=== PATIENT | female | born 1970 | race Hispanic/Latino ===

== ENCOUNTER 2016-06-06 12:47 | Emergency (ER) | payer MEDICARE, MEDICAID ==
[~2016-06-06] VITALS: Ht 147.3 cm; Wt 64.9 kg
[2016-06-06] MEDS ORDERED: ESTR625TA (13:05)
--- NOTE | 2016-06-06 14:41 | REP ---
CT Head without contrast HISTORY: Headache COMPARISON: 12/03/2010 There is no intraparenchymal hemorrhage, acute infarct, mass or midline shift. The ventricular system is normal in appearance. There is no extra cerebral collection. There is no fracture. The visualized sinuses are clear. IMPRESSION: There is no intracranial lesion. Signed by Andres Sanchez MD 06/06/2016 02:32 P
[2016-06-06] MEDS ORDERED: ACETAMINOPHEN 325 MG TAB PO ONE (15:15)
[2016-06-06] MEDS ORDERED: KETOROLAC 60 MG/2 ML VIAL (J1885) IM ONE (15:15)
[2016-06-06 16:21] VITALS: BP 150/93
== END 2016-06-06 16:36 | disposition home or self-care (01) ==
LOC: M ED 13:34
DX: R51 Headache (principal); Z79.818 Long term (current) use of other agents affecting estrogen receptors and estrogen levels
CPT/HCPCS: 70450; 96372; 99282; J1885

== ENCOUNTER 2016-08-20 19:40 | Emergency (ER) | payer MEDICARE, MEDICAID ==
[~2016-08-20] VITALS: Ht 147.3 cm; Wt 65.4 kg
[~2016-08-20 19:40] MED LIST: ESTR625TA
[2016-08-20] MEDS ORDERED: MECLIZINE 25 MG TABLET PO ONE (20:15)
[2016-08-20] MEDS ORDERED: NS 1,000 ML IV SCH (20:15)
[2016-08-20 21:14] LABS: BASO # 0.1 K/mm3 (0.0-0.2); BASO % 0.8 % (0.0-1.0); EOS # 0.2 K/mm3 (0.0-0.50); EOS % 2.2 % (0.0-3.0); LARGE UNSTAINED CELL # 0.3 K/mm3 (0.0-0.4); LARGE UNSTAINED CELL % 2.9 % (0.0-4.0); LYMPH # 2.8 K/mm3 (1.5-4.5); LYMPH % 31.4 % (24.0-44.0); MEAN CORPUSCULAR HEMOGLOBIN 28.1 pg (27.0-33.0); MEAN CORPUSCULAR HGB CONC 34.9 g/dl (32.0-36.5); MEAN CORPUSCULAR VOLUME 80.6 fl (80.0-96.0); MONO # 0.4 K/mm3 (0.0-0.8); MONO % 4.5 % (0.0-5.0); NEUTROPHILS # 5.3 K/mm3 (1.8-7.7); NEUTROPHILS % 58.3 % (36.0-66.0); PLATELET COUNT, AUTOMATED 267 k/mm3 (150-450); RED CELL DISTRIBUTION WIDTH 13.7 % (11.5-14.5)
[2016-08-20 21:20] LABS: INR 0.94
[2016-08-20 21:21] LABS: CONTROL LINE HCG INT CTR LINE PRESENT
[2016-08-20 21:28] LABS: ALBUMIN 3.8 GM/DL (3.2-5.2); ALKALINE PHOSPHATASE 128 U/L (45-117); ALT/SGPT 59 U/L (12-78); ANION GAP 6 MEQ/L (8-16); AST/SGOT 51 U/L (15-37); BILIRUBIN,DIRECT 0.1 MG/DL (0.0-0.2); BILIRUBIN,TOTAL 0.4 MG/DL (0.2-1.0); BLOOD UREA NITROGEN 11 MG/DL (7-18); CALCIUM LEVEL 8.3 MG/DL (8.5-10.1); CARBON DIOXIDE LEVEL 29 MEQ/L (21-32); CHLORIDE LEVEL 107 MEQ/L (98-107); GLOMERULAR FILTRATION RATE > 60.0 (>58); GLUCOSE, FASTING 91 MG/DL (70-105); SODIUM LEVEL 142 MEQ/L (136-145); TOTAL PROTEIN 7.6 GM/DL (6.4-8.2)
--- NOTE | 2016-08-20 22:05 | REP ---
Clinical: Headache and dizziness . Comparison: 06/06/2016 . Findings: The ventricles, sulci, and cisterns are normal in position and appearance. Benton-white differentiation is maintained. No acute intracranial hemorrhage, mass/mass effect, pathology or trauma/injury. No evidence for acute infarction. No extra-axial fluid collection. Calvarium is intact. Paranasal sinuses and mastoid air cells are clear. Impression: Normal noncontrast head CT. No evidence for acute intracranial pathology or trauma/injury. Signed by Allen Palacios MD 08/20/2016 09:57 P
[2016-08-20] MEDS ORDERED: MECL-68 PO (22:28)
[2016-08-20 22:32] VITALS: BP 134/95
--- NOTE | 2016-08-22 07:20 | ECGEPIP ---
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
== END 2016-08-20 22:55 | disposition home or self-care (01) ==
LOC: M ED 19:40
DX: H83.09 Labyrinthitis, unspecified ear (principal); R11.2 Nausea with vomiting, unspecified

== ENCOUNTER 2018-02-09 14:37 | Emergency (ER) | payer MEDICARE, MEDICAID ==
[~2018-02-09 14:37] MED LIST changes: +BENT10CA PO; +MECL-68 PO; +MOBI4TAB PO; +ZANA4TAB PO
[2018-02-09] MEDS ORDERED: LISI-542 (14:45)
[2018-02-09 15:38] LABS: HEMATOCRIT 43.8 % (36.0-47.0); HEMOGLOBIN 14.2 g/dl (12.0-15.5); MEAN CORPUSCULAR HEMOGLOBIN 27.4 pg (27.0-33.0); MEAN CORPUSCULAR HGB CONC 32.4 g/dl (32.0-36.5); MEAN CORPUSCULAR VOLUME 84.6 fl (80.0-96.0); PLATELET COUNT, AUTOMATED 279 10^3/uL (150-450); RED BLOOD COUNT 5.18 10^6/uL (4.00-5.40); WHITE BLOOD COUNT 7.8 10^3/uL (4.0-10.0)
[2018-02-09 15:54] LABS: AMPHETAMINES LEVEL URINE NEGATIVE (NEGATIVE); BARBITURATES URINE NEGATIVE (NEGATIVE); BENZODIAZEPINES URINE NEGATIVE (NEGATIVE); CANNABINOIDS URINE NEGATIVE (NEGATIVE); COCAINE METABOLITE URINE NEGATIVE (NEGATIVE); METHADONE URINE NEGATIVE (NEGATIVE); OPIATES URINE NEGATIVE (NEGATIVE); PHENCYCLIDINE URINE NEGATIVE (NEGATIVE)
[2018-02-09] MEDS ORDERED: LISINOPRIL 5 MG TAB PO ONE (16:00)
[2018-02-09] MEDS ORDERED: ACETAMINOPHEN TAB 650MG DOSE (2X325MG) PO ONE (16:00)
[2018-02-09 16:23] VITALS: BP 154/100
[2018-02-09 16:28] LABS: ALT/SGPT 15 U/L (12-78); BILIRUBIN,TOTAL 0.5 MG/DL (0.2-1.0); BLOOD UREA NITROGEN 21 MG/DL (7-18); CALCIUM LEVEL 8.9 MG/DL (8.5-10.1); CARBON DIOXIDE LEVEL 29 MEQ/L (21-32); CHLORIDE LEVEL 109 MEQ/L (98-107); CREATININE FOR GFR 0.69 MG/DL (0.55-1.30); GLOMERULAR FILTRATION RATE > 60.0 (>58); GLUCOSE, FASTING 105 MG/DL (70-100); POTASSIUM SERUM 3.8 MEQ/L (3.5-5.1); SODIUM LEVEL 143 MEQ/L (136-145)
[2018-02-09 16:29] LABS: ACETAMINOPHEN LEVEL < 2.0 UG/ML (10.0-30.0); ALBUMIN 4.3 GM/DL (3.2-5.2); BILIRUBIN,DIRECT 0.1 MG/DL (0.0-0.2); ETHYL ALCOHOL (ETHANOL) < 0.003 % (0.000-0.010); SALICYLATE LEVEL < 1.7 MG/DL (5.0-30.0); TOTAL PROTEIN 7.8 GM/DL (6.4-8.2)
[2018-02-09 17:19] VITALS: BP 152/96
== END 2018-02-09 18:10 | disposition home or self-care (01) ==
LOC: M ED 14:37
DX: F32.9 Major depressive disorder, single episode, unspecified (principal); I10 Essential (primary) hypertension; Z79.899 Other long term (current) drug therapy
CPT/HCPCS: 80048; 80076; 80307; 84443; 85027; 99284; G0480

== ENCOUNTER → 2018-08-05 | Outpatient (CLI) | payer MEDICARE, MEDICAID ==
[~2018-08-05] MED LIST changes: +LISI-542
--- NOTE | 2018-08-05 14:46 | REP ---
CHEST: Two views. COMPARISON: 10/10/2015 There is no evidence of acute infiltrate. No pleural effusion is seen. The heart is normal in size. The mediastinal silhouette is unremarkable. The visualized osseous structures are intact. There are degenerative changes of the spine. IMPRESSION: No acute pulmonary disease. Electronically Signed by Rudi Benton MD 08/05/2018 04:51 P
== END ==
LOC: M WUC 13:15
PROVIDERS: ATTEND Physician Assistant
DX: R05 Cough (principal)

== ENCOUNTER 2018-12-03 14:23 | Emergency (ER) | payer MEDICARE, MEDICAID ==
[~2018-12-03] VITALS: Ht 147.3 cm; Wt 61.8 kg
[~2018-12-03 14:23] MED LIST changes: -LISI-542; +LISI-542 PO
[2018-12-03] MEDS ORDERED: LOSA50TA5 PO (14:30)
[2018-12-03 15:53] LABS: BASO % 0.2 % (0.0-1.0); EOS # 0.1 10^3/uL (0.0-0.5); EOS % 0.6 % (0.0-3.0); HEMATOCRIT 40.9 % (36.0-47.0); HEMOGLOBIN 13.8 g/dl (12.0-15.5); LYMPH # 1.1 10^3/uL (1.5-5.0); LYMPH % 8.9 % (24.0-44.0); MEAN CORPUSCULAR HEMOGLOBIN 28.4 pg (27.0-33.0); MEAN CORPUSCULAR HGB CONC 33.7 g/dl (32.0-36.5); MEAN CORPUSCULAR VOLUME 84.2 fl (80.0-96.0); MONO # 0.4 10^3/uL (0.0-0.8); MONO % 3.2 % (0.0-5.0); NEUTROPHILS # 10.4 10^3/uL (1.5-8.5); NEUTROPHILS % 86.9 % (36.0-66.0); PLATELET COUNT, AUTOMATED 292 10^3/uL (150-450); RED BLOOD COUNT 4.86 10^6/uL (4.00-5.40)
[2018-12-03 16:22] LABS: HCG, SERUM QUALITATIVE NEGATIVE (NEGATIVE)
[2018-12-03 16:23] LABS: ALT/SGPT 14 U/L (12-78); BILIRUBIN,DIRECT 0.1 MG/DL (0.0-0.2); BILIRUBIN,TOTAL 0.5 MG/DL (0.2-1.0); BLOOD UREA NITROGEN 16 MG/DL (7-18); CALCIUM LEVEL 9.5 MG/DL (8.5-10.1); CARBON DIOXIDE LEVEL 28 MEQ/L (21-32); CHLORIDE LEVEL 103 MEQ/L (98-107); CREATININE FOR GFR 0.64 MG/DL (0.55-1.30); GLOMERULAR FILTRATION RATE > 60.0 (>58); GLUCOSE, FASTING 104 MG/DL (70-100); LIPASE 139 U/L (73-393); POTASSIUM SERUM 3.3 MEQ/L (3.5-5.1); SODIUM LEVEL 138 MEQ/L (136-145); TOTAL PROTEIN 7.4 GM/DL (6.4-8.2)
[2018-12-03] MEDS ORDERED: NS 1,000 ML IV ONE (16:45)
[2018-12-03] MEDS ORDERED: ONDANSETRON 4MG/2ML VIAL (J2405) IV ONE (16:45)
[2018-12-03] MEDS ORDERED: KETOROLAC 30 MG/ML VIAL (J1885) IV ONE (16:45)
[2018-12-03] MEDS ORDERED: ISOVUE-370 76% 100ML VIAL (Q9967) As Ordered ONE (16:48)
--- NOTE | 2018-12-03 17:36 | REPVR ---
PROCEDURE INFORMATION: Exam: CT Abdomen And Pelvis With Contrast Exam date and time: 12/03/2018 4:47 PM Clinical history: 48 years old, female; Abdominal pain; Generalized; Additional info: Ruq/luq abd pain TECHNIQUE: Imaging protocol: Computed tomography of the abdomen and pelvis with intravenous contrast. Axial, coronal and sagittal reformatted images were created and reviewed. Radiation optimization: All CT scans at this facility use at least one of these dose optimization techniques: automated exposure control; mA and/or kV adjustment per patient size (includes targeted exams where dose is matched to clinical indication); or iterative reconstruction. Contrast material: ISOVUE 370; Contrast volume: 100 ml; Contrast route: IV; COMPARISON: CT ABD PELVIS W/O CONTRAST 06/24/2017 3:16 PM FINDINGS: Mediastinum: Small hiatal hernia. Liver: Mild hepatic steatosis. Gallbladder and bile ducts: Contracted gallbladder without radiodense gallstones. Common bile duct dilatation to approximately 1 cm. Pancreas: Unremarkable. Spleen: Unremarkable. Adrenals: Unremarkable. Kidneys and ureters: No mass. No radiodense calculi. No hydronephrosis. Stomach and bowel: No bowel wall thickening. No obstruction. No pneumatosis. Appendix: Normal. Intraperitoneal space: No free fluid. No organized fluid collection. No free air. Vasculature: Unremarkable. No aneurysm. Lymph nodes: Small mesenteric lymph nodes, nonspecific in appearance. No pathologically enlarged lymph nodes. Bladder: Mild circumferential urinary bladder wall thickening, likely secondary to underdistention. Reproductive: Status post hysterectomy. Bones/joints: No acute osseous abnormality. Osteopenia. Mild degenerative changes. Soft tissues: Unremarkable. IMPRESSION: 1. Common bile duct dilatation to approximately 1 cm. correlate with LFTs. 2. Mild circumferential urinary bladder wall thickening, likely secondary to underdistention. Correlate with urinalysis to exclude cystitis. 3. Additional findings, as above. Electronically signed by: Rohit Barrera On 12/03/2018 17:36:01 PM
[2018-12-03 19:46] VITALS: BP 170/73
--- NOTE | 2018-12-04 16:04 | ED PDOC ---
Post-Departure Follow-Up jody greer and [facility] faxed formal report of ct abd/p for fu Tonja Cast MD Dec 04, 2018 16:04
== END 2018-12-03 20:03 | disposition home or self-care (01) ==
LOC: M ED 14:23
DX: R10.11 Right upper quadrant pain (principal); K59.00 Constipation, unspecified; D13.1 Benign neoplasm of stomach; Z79.890 Hormone replacement therapy; Z79.899 Other long term (current) drug therapy
CPT/HCPCS: 74177; 80048; 80076; 81001; 83690; 84703; 85025; 96361; 96374; 96375; 99284; J1885; J2405; Q9967

== ENCOUNTER 2019-06-13 10:46 | Emergency (ER) | payer MEDICARE, MEDICAID ==
[~2019-06-13] VITALS: Ht 147.3 cm; Wt 61.8 kg
[~2019-06-13 10:46] MED LIST changes: +LOSA50TA5 PO; -MECL-68 PO; +MECL1TAB31 PO
[2019-06-13 11:23] LABS: HEMOGLOBIN 13.8 g/dl (12.0-15.5); MEAN CORPUSCULAR HEMOGLOBIN 28.3 pg (27.0-33.0); MEAN CORPUSCULAR HGB CONC 33.7 g/dl (32.0-36.5); PLATELET COUNT, AUTOMATED 256 10^3/uL (150-450); RED BLOOD COUNT 4.88 10^6/uL (4.00-5.40); WHITE BLOOD COUNT 6.1 10^3/uL (4.0-10.0)
[2019-06-13 12:02] LABS: HCG, SERUM QUALITATIVE NEGATIVE (NEGATIVE)
[2019-06-13 12:08] LABS: ACETAMINOPHEN LEVEL < 2.0 UG/ML (10.0-30.0); ALT/SGPT 15 U/L (12-78); BILIRUBIN,DIRECT 0.1 MG/DL (0.0-0.2); BILIRUBIN,TOTAL 0.5 MG/DL (0.2-1.0); BLOOD UREA NITROGEN 18 MG/DL (7-18); CARBON DIOXIDE LEVEL 26 MEQ/L (21-32); CHLORIDE LEVEL 106 MEQ/L (98-107); CREATININE FOR GFR 0.56 MG/DL (0.55-1.30); ETHYL ALCOHOL (ETHANOL) < 0.003 % (0.000-0.010); GLOMERULAR FILTRATION RATE > 60.0 (>58); GLUCOSE, FASTING 92 MG/DL (70-100); POTASSIUM SERUM 3.6 MEQ/L (3.5-5.1); SALICYLATE LEVEL < 1.7 MG/DL (5.0-30.0); SODIUM LEVEL 139 MEQ/L (136-145); TOTAL PROTEIN 7.7 GM/DL (6.4-8.2)
[2019-06-13 12:13] LABS: AMPHETAMINES LEVEL URINE NEGATIVE (NEGATIVE); BARBITURATES URINE NEGATIVE (NEGATIVE); BENZODIAZEPINES URINE NEGATIVE (NEGATIVE); CANNABINOIDS URINE NEGATIVE (NEGATIVE); COCAINE METABOLITE URINE NEGATIVE (NEGATIVE); METHADONE URINE NEGATIVE (NEGATIVE); OPIATES URINE NEGATIVE (NEGATIVE); PHENCYCLIDINE URINE NEGATIVE (NEGATIVE)
[2019-06-13 13:59] VITALS: BP 150/55
== END 2019-06-13 14:01 | disposition home or self-care (01) ==
LOC: M ED 10:46
DX: F43.20 Adjustment disorder, unspecified (principal); F79 Unspecified intellectual disabilities; F32.9 Major depressive disorder, single episode, unspecified; I10 Essential (primary) hypertension; Z79.899 Other long term (current) drug therapy; Z79.890 Hormone replacement therapy
CPT/HCPCS: 36415; 80048; 80076; 80307; 84443; 84703; 85027; 99284; G0480

== ENCOUNTER → 2019-07-24 | Outpatient (CLI) | payer MEDICARE, MEDICAID ==
--- NOTE | 2019-07-24 13:36 | REP ---
REASON: Atraumatic pain. There are no priors for comparison. AP and frog lateral views were obtained. FINDINGS: No acute fracture or destructive osseous lesion. Electronically Signed by Ryan Harden DO 07/24/2019 02:33 P
== END ==
LOC: M WUC 11:15
PROVIDERS: ATTEND Physician Assistant
DX: M79.604 Pain in right leg (principal)

== ENCOUNTER 2020-07-16 01:08 | Emergency (ER) | payer MEDICARE, MEDICAID ==
[~2020-07-16] VITALS: Ht 147.3 cm; Wt 61.4 kg
[~2020-07-16 01:08] MED LIST changes: -LISI-542 PO; +LISI-898 PO
[2020-07-16 01:53] LABS: BASO % 0.3 % (0.0-1.0); EOS # 0.5 10^3/uL (0.0-0.5); EOS % 5.6 % (0.0-3.0); HEMATOCRIT 40.8 % (36.0-47.0); HEMOGLOBIN 13.3 g/dl (12.0-15.5); LYMPH # 2.7 10^3/uL (1.5-5.0); LYMPH % 30.2 % (24.0-44.0); MEAN CORPUSCULAR HEMOGLOBIN 27.5 pg (27.0-33.0); MEAN CORPUSCULAR HGB CONC 32.6 g/dl (32.0-36.5); MEAN CORPUSCULAR VOLUME 84.5 fl (80.0-96.0); MONO # 0.4 10^3/uL (0.0-0.8); MONO % 4.5 % (2.0-8.0); NEUTROPHILS # 5.2 10^3/uL (1.5-8.5); NEUTROPHILS % 59.1 % (36.0-66.0); PLATELET COUNT, AUTOMATED 283 10^3/uL (150-450); RED BLOOD COUNT 4.83 10^6/uL (4.00-5.40); WHITE BLOOD COUNT 8.9 10^3/uL (4.0-10.0)
[2020-07-16 02:38] LABS: BLOOD UREA NITROGEN 18 MG/DL (7-18); CALCIUM LEVEL 9.1 MG/DL (8.5-10.1); CARBON DIOXIDE LEVEL 26 MEQ/L (21-32); CHLORIDE LEVEL 108 MEQ/L (98-107); CK-MB VALUE MASS < 1.0 NG/ML (<3.6); CPK CREATINE PHOSPHOKINASE 74 U/L (26-192); GLOMERULAR FILTRATION RATE > 60.0 (>58); GLUCOSE, FASTING 94 MG/DL (70-100); MB/CK RELATIVE INDEX 1.35 (< OR =4); POTASSIUM SERUM 3.6 MEQ/L (3.5-5.1); SODIUM LEVEL 142 MEQ/L (136-145); TROPONIN I < 0.02 NG/ML (< 0.10)
--- NOTE | 2020-07-16 02:45 | REPVR ---
PROCEDURE INFORMATION: Exam: XR Chest Exam date and time: 07/16/2020 1:42 AM Age: 50 years old Clinical indication: Other: Chest pain TECHNIQUE: Imaging protocol: XR of the chest. Views: 1 view. COMPARISON: 1. CR CHEST 2 VIEW 2018-08-05 13:48 2. CR Ribs uni W-PA CHEST ONLY 2017-06-24 17:14 3. CR Chest, 2 view PA, Lat 2015-10-10 03:28 FINDINGS: Lungs: Unremarkable. No consolidation. Pleural spaces: Unremarkable. No pleural effusion. No pneumothorax. Heart/Mediastinum: Unremarkable. No cardiomegaly. Bones/joints: Unremarkable. IMPRESSION: No acute findings. Electronically signed by: Ozzie Alegria On 07/16/2020 02:45:09 AM
[2020-07-16] MEDS ORDERED: GI COCKTAIL 50ML BTL(HYOSCYAMINE/MAALOX/LIDOCAINE VISCOUS)(1:3:1) PO ONE (04:10)
[2020-07-16] MEDS ORDERED: ASPIRIN 81 MG CHEW TABLET PO ONE (04:10)
[2020-07-16] MEDS ORDERED: PANTOPRAZOLE 40MG VIAL (C9113 PER 1) IV ONE (04:10)
[2020-07-16] MEDS ORDERED: ISOVUE-370 76% 100ML VIAL As Ordered ONE (05:02)
[2020-07-16] MEDS ORDERED: METAL LOCK LOOP XX ONE (05:46)
--- NOTE | 2020-07-16 05:58 | REPVR ---
PROCEDURE INFORMATION: Exam: CTA Chest With Contrast Exam date and time: 07/16/2020 4:58 AM Age: 50 years old Clinical indication: Chest pressure; Patient HX: Chest pain TECHNIQUE: Imaging protocol: Computed tomographic angiography of the chest with contrast. 3D rendering (Not supervised by radiologist): MIP and/or 3D reconstructed images were created by the technologist. Radiation optimization: All CT scans at this facility use at least one of these dose optimization techniques: automated exposure control; mA and/or kV adjustment per patient size (includes targeted exams where dose is matched to clinical indication); or iterative reconstruction. Contrast material: ISO; Contrast volume: 75 ml; Contrast route: INTRAVENOUS (IV); COMPARISON: CR PORTABLE CHEST X-RAY 07/16/2020 1:40 AM FINDINGS: PULMONARY ARTERIES: Diameter of the main pulmonary trunk at 2.4 cm is within normal range. Enhancement within the pulmonary arteries is preserved bilaterally through the distal segmental levels, without evidence of any acute appearing occlusive pulmonary emboli. HEART AND AORTA: Mild cardiac enlargement. No pericardial effusion. Evaluation of the aortic root and ascending thoracic aorta is slightly compromised by cardiac motion artifact. No thoracic aortic aneurysm or dissection is seen otherwise. Visualized proximal great vessels within the superior mediastinum are preserved. MEDIASTINUM: No mediastinal gas. The visualized thyroid gland is homogeneous. No mediastinal hematoma. Small amount of fluid noted within the pericardial recesses. Small mediastinal and hilar lymph nodes are noted but not appearing obviously pathologic by size criteria. The visualized distal esophagus is slightly distended with gas. Mild wall thickening cannot be excluded. There is a small gas containing hiatal hernia. Clinical correlation with any esophageal symptoms, such as mild esophagitis and or reflux. LUNGS: The lungs are symmetric in expansion. There is no consolidation, pneumothorax or pleural effusion. Scattered mild geographic ground-glass opacities are seen bilaterally which may be secondary to atelectasis, mild pulmonary edema or mild pneumonitis. Clinical correlation with any symptoms is advised. Bibasal and dependent subpleural opacities noted, likely secondary to atelectasis. No suspicious pulmonary parenchymal mass. No bronchiectasis or peribronchial thickening. UPPER ABDOMEN: No free air or free fluid within the visualized upper most abdomen. MSK AND BODY WALL: Mild degenerative changes of the spine. IMPRESSION: No evidence for acute pulmonary embolus. Mild cardiac enlargement. Mild scattered ground-glass pulmonary opacities are noted which may be correlated for mild pneumonitis, mild edema or atelectasis. Clinical correlation with any esophageal symptoms as discussed above. Other findings discussed above in detail. Electronically signed by: Satinder Gross On 07/16/2020 05:57:13 AM
[2020-07-16 07:40] LABS: CK-MB VALUE MASS < 1.0 NG/ML (<3.6); CPK CREATINE PHOSPHOKINASE 59 U/L (26-192); MB/CK RELATIVE INDEX 1.69 (< OR =4); TROPONIN I < 0.02 NG/ML (< 0.10)
[2020-07-16 09:06] VITALS: BP 128/76
--- NOTE | 2020-07-17 08:46 | ECGEPIP ---
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
--- NOTE | 2020-07-17 08:47 | ECGEPIP ---
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
== END 2020-07-16 09:10 | disposition home or self-care (01) ==
LOC: M ED 01:08
DX: R07.89 Other chest pain (principal); I10 Essential (primary) hypertension; Z79.890 Hormone replacement therapy; Z79.899 Other long term (current) drug therapy
CPT/HCPCS: 71045; 71275; 80048; 82550; 82553; 84484; 85025; 93005; 93041; 94760; 96374; 99285; C9113; Q9967

== ENCOUNTER → 2021-04-04 | Outpatient (CLI) | payer MEDICARE, MEDICAID ==
[~2021-04-04] MED LIST changes: -LISI-898 PO; +LISI5TAB11 PO
== END ==
LOC: M WHC 10:02
PROVIDERS: ATTEND Family Medicine
DX: Z12.31 Encounter for screening mammogram for malignant neoplasm of breast (principal)

== ENCOUNTER → 2021-08-03 | Outpatient (CLI) | payer MEDICARE, MEDICAID | LOC: M LABSMTC 09:12 | PROVIDERS: ATTEND Anesthesiology | DX: Z01.818 Encounter for other preprocedural examination (principal); Z11.52 Encounter for screening for COVID-19 ==

== ENCOUNTER → 2021-12-04 | Outpatient (CLI) | payer MEDICARE, MEDICAID | LOC: M LABSMTC 09:19 | PROVIDERS: ATTEND Anesthesiology | DX: Z01.818 Encounter for other preprocedural examination (principal); Z11.52 Encounter for screening for COVID-19 ==

== ENCOUNTER → 2021-12-07 | Day surgery (SDC) | payer MEDICARE, MEDICAID ==
[~2021-12-07] VITALS: Ht 147.3 cm; Wt 57.2 kg
[~2021-12-07] MED LIST changes: +LIDOCAINE 2% 100MG/5ML SDV (FOR ANES.) As Ordered ONE; +NS 1,000 ML IV ONE; +propofoL 200 MG/20 ML VIAL As Ordered ONE
[2021-12-07 08:30] VITALS: BP 143/89
== END | disposition home or self-care (01) ==
LOC: M OPP 06:42
PROVIDERS: ATTEND Internal Medicine Gastroenterology
DX: Z12.11 Encounter for screening for malignant neoplasm of colon (principal); K64.0 First degree hemorrhoids; Z79.890 Hormone replacement therapy; Z79.899 Other long term (current) drug therapy; I10 Essential (primary) hypertension

== ENCOUNTER → 2022-05-02 | Outpatient (CLI) | payer MEDICARE, MEDICAID ==
[~2022-05-02] MED LIST changes: -LIDOCAINE 2% 100MG/5ML SDV (FOR ANES.) As Ordered ONE; -NS 1,000 ML IV ONE; -propofoL 200 MG/20 ML VIAL As Ordered ONE
== END ==
LOC: M RAD 18:39
PROVIDERS: ATTEND Physician Assistant
DX: R10.816 Epigastric abdominal tenderness (principal)

== ENCOUNTER 2022-12-05 10:44 | Emergency (ER) | payer MEDICARE, MEDICAID ==
[~2022-12-05] VITALS: Ht 147.3 cm; Wt 27.3 kg
[~2022-12-05 10:44] MED LIST changes: +MECL-209 PO; -MECL1TAB31 PO
[2022-12-05 13:31] VITALS: BP 159/93; TEMP 97.5; O2SAT 97
== END 2022-12-05 13:32 | disposition home or self-care (01) ==
LOC: M ED 10:44
DX: F43.0 Acute stress reaction (principal); I10 Essential (primary) hypertension; G31.84 Mild cognitive impairment of uncertain or unknown etiology

== ENCOUNTER → 2023-06-28 | Outpatient (CLI) | payer MEDICARE, MEDICAID | LOC: M WHC 12:57 | PROVIDERS: ATTEND Family Medicine | DX: Z12.31 Encounter for screening mammogram for malignant neoplasm of breast (principal) ==

== ENCOUNTER 2024-03-09 18:30 | Observation (INO) | payer MEDICARE, MEDICAID ==
[~2024-03-09] VITALS: Ht 147.3 cm; Wt 66.0 kg
[~2024-03-09 18:30] MED LIST changes: -ESTR625TA; +ESTR625TA PO
[2024-03-09] MEDS: MORPHINE 4 MG/ML 1ML VIAL IV ONE (19:16)
[2024-03-09] MEDS ORDERED: ISOVUE-370 76% 100ML VIAL As Ordered ONE (19:18)
[2024-03-09 19:20] LABS: BASO % 0.2 % (0.0-1.0); EOS # 0.2 10^3/uL (0.0-0.5); EOS % 1.7 % (0.0-3.0); HEMATOCRIT 37.5 % (36.0-47.0); HEMOGLOBIN 12.6 g/dl (12.0-15.5); LYMPH # 1.9 10^3/uL (1.5-5.0); MEAN CORPUSCULAR HEMOGLOBIN 28.3 pg (27.0-33.0); MEAN CORPUSCULAR HGB CONC 33.6 g/dl (32.0-36.5); MEAN CORPUSCULAR VOLUME 84.3 fl (80.0-96.0); MONO # 0.4 10^3/uL (0.0-0.8); MONO % 4.1 % (2.0-8.0); NEUTROPHILS % 75.5 % (36.0-66.0); PLATELET COUNT, AUTOMATED 245 10^3/uL (150-450); RED BLOOD COUNT 4.45 10^6/uL (4.00-5.40); WHITE BLOOD COUNT 10.6 10^3/uL (4.0-10.0)
[2024-03-09] MEDS: MORPHINE 4 MG/ML 1ML VIAL IV PRN (21:42)
[2024-03-09] MEDS ORDERED: MOM 30ML SUSPENSION UDC PO PRN (23:35)
[2024-03-09] MEDS ORDERED: ACETAMINOPHEN 325 MG TAB PO PRN (23:35)
[2024-03-09] MEDS ORDERED: PERCOCET 5MG/325MG TAB PO PRN (23:35)
[2024-03-09] MEDS ORDERED: MAALOX 30 ML SUSP *UDC PO PRN (23:35)
[2024-03-09] MEDS ORDERED: NALOXONE INJ 0.4MG/1ML VIAL IV PRN (23:35)
[2024-03-10 01:55] LABS: INR 0.97; PARTIAL THROMBOPLASTIN TIME 26.7 SECONDS (24.8-34.2); PROTHROMBIN TIME 13.2 SECONDS (12.5-14.5)
[2024-03-10 02:06] LABS: ALBUMIN 3.8 G/DL (3.2-5.2); ALKALINE PHOSPHATASE 108 U/L (35-104); ALT/SGPT 17 U/L (7.0-40); AST/SGOT 21 U/L (<34); BILIRUBIN,TOTAL 0.6 MG/DL (0.3-1.2); BLOOD UREA NITROGEN 16 MG/DL (9-23); CALCIUM LEVEL 8.9 MG/DL (8.5-10.1); CARBON DIOXIDE LEVEL 25 MMOL/L (20-31); CHLORIDE LEVEL 102 MMOL/L (98-107); CREATININE FOR GFR 0.51 MG/DL (0.55-1.30); GLOMERULAR FILTRATION RATE > 60.0 (>51); GLUCOSE, FASTING 149 MG/DL (60-100); MAGNESIUM LEVEL 1.8 MG/DL (1.8-2.4); POTASSIUM SERUM 3.7 MMOL/L (3.5-5.1); SODIUM LEVEL 138 MMOL/L (136-145); TOTAL PROTEIN 7.3 G/DL (5.7-8.2)
[2024-03-10] MEDS: METHOCARBAMOL 1,000 MG/10 ML VIAL IV ONE (02:24)
[2024-03-10] MEDS: LIDOCAINE 5% (LIDODERM) PATCH TD SCH (02:25)
[2024-03-10] MEDS: ACETAMINOPHEN *IV* 1,000 MG in IV 1 EA IV ONE (02:25)
[2024-03-10] MEDS ORDERED: MULT1TAB50 PO (02:36)
[2024-03-10] MEDS ORDERED: HOME MED LIST COMPLETE! XX SCH (02:40)
[2024-03-10 04:17] VITALS: BP 122/72; TEMP 98.2; O2SAT 93
[2024-03-10] MEDS: PERCOCET 5MG/325MG TAB PO PRN (04:59)
[2024-03-10] MEDS: KETOROLAC 30 MG/ML 1ML VIAL IV SCH (05:00)
[2024-03-10 06:35] LABS: HEMOGLOBIN 12.7 g/dl (12.0-15.5); MEAN CORPUSCULAR HEMOGLOBIN 28.4 pg (27.0-33.0); MEAN CORPUSCULAR HGB CONC 34.3 g/dl (32.0-36.5); MEAN CORPUSCULAR VOLUME 82.8 fl (80.0-96.0); PLATELET COUNT, AUTOMATED 268 10^3/uL (150-450); RED BLOOD COUNT 4.47 10^6/uL (4.00-5.40); WHITE BLOOD COUNT 11.3 10^3/uL (4.0-10.0)
[2024-03-10 06:52] LABS: ALBUMIN 3.6 G/DL (3.2-5.2); ALKALINE PHOSPHATASE 103 U/L (35-104); ALT/SGPT 15 U/L (7.0-40); AST/SGOT 26 U/L (<34); BILIRUBIN,TOTAL 0.8 MG/DL (0.3-1.2); BLOOD UREA NITROGEN 13 MG/DL (9-23); CALCIUM LEVEL 8.9 MG/DL (8.5-10.1); CARBON DIOXIDE LEVEL 25 MMOL/L (20-31); CHLORIDE LEVEL 103 MMOL/L (98-107); CREATININE FOR GFR 0.45 MG/DL (0.55-1.30); GLOMERULAR FILTRATION RATE > 60.0 (>51); GLUCOSE, FASTING 115 MG/DL (60-100); MAGNESIUM LEVEL 1.8 MG/DL (1.8-2.4); POTASSIUM SERUM 3.7 MMOL/L (3.5-5.1); SODIUM LEVEL 138 MMOL/L (136-145); TOTAL PROTEIN 6.6 G/DL (5.7-8.2)
[2024-03-10 08:00] VITALS: BP 105/68; TEMP 97.3; O2SAT 96
[2024-03-10] MEDS ORDERED: oxyCODONE 5MG TAB PO PRN (08:40)
[2024-03-10] MEDS ORDERED: methocarbamoL 500 MG TAB PO SCH (09:00)
[2024-03-10] MEDS: DOCUSATE SODIUM 100MG CAPSULE PO SCH (09:57)
[2024-03-10] MEDS: ENOXAPARIN 40MG/0.4ML SYRINGE (J1650 PER 10MG) SC SCH (09:58)
[2024-03-10] MEDS: ACETAMINOPHEN 500 MG TAB PO SCH (09:58)
[2024-03-10] MEDS ORDERED: METH-1165 PO (10:50)
[2024-03-10] MEDS ORDERED: OXYC1TAB23 PO (10:50)
[2024-03-10] MEDS ORDERED: LIDO1PAD TOP (10:50)
[2024-03-10] MEDS ORDERED: methocarbamoL 750 MG TAB PO SCH (11:24)
[2024-03-10] MEDS: methocarbamoL 750 MG TAB PO SCH (11:36)
[2024-03-10 12:00] VITALS: BP 110/69; TEMP 97; O2SAT 96
[2024-03-10 14:53] VITALS: O2SAT 97
[2024-03-10] MEDS: oxyCODONE 5MG TAB PO PRN (14:53)
[2024-03-10] MEDS: ONDANSETRON 4MG ORAL DISINTEGRATING TAB PO PRN (14:54)
[2024-03-11] MEDS ORDERED: methocarbamoL 500 MG TAB PO PRN (09:00)
== END 2024-03-10 15:19 | disposition home or self-care (01) ==
LOC: EDBD 18:30 → M ED 18:30 → INTOOBSV 23:34 → M ED INP 23:34 → M MSPAV 03-10 04:00
PROVIDERS: ADMIT Family Medicine; ATTEND Internal Medicine
DX: S22.32XA Fracture of one rib, left side, initial encounter for closed fracture (principal); S22.089A Unspecified fracture of T11-T12 vertebra, initial encounter for closed fracture; W10.8XXA Fall (on) (from) other stairs and steps, initial encounter; Y92.098 Other place in other non-institutional residence as the place of occurrence of the external cause; Y93.01 Activity, walking, marching and hiking; Y99.8 Other external cause status; J96.20 Acute and chronic respiratory failure, unspecified whether with hypoxia or hypercapnia; D72.829 Elevated white blood cell count, unspecified; I10 Essential (primary) hypertension; F79 Unspecified intellectual disabilities; R42 Dizziness and giddiness; Z90.79 Acquired absence of other genital organ(s); Z98.890 Other specified postprocedural states; Z79.899 Other long term (current) drug therapy; Z79.890 Hormone replacement therapy
CPT/HCPCS: 36415; 71260; 72131; 74177; 80047; 80053; 83735; 85025; 85027; 85610; 85730; 96365; 96372; 96375; 96376; 97116; 97161; 99285; G0378; J0131; J1650; J1885; J2800; Q9967

== ENCOUNTER 2024-04-17 10:11 | Outpatient (RCR) | payer MEDICARE, MEDICAID ==
[~2024-04-17 10:11] MED LIST changes: +LIDO1PAD TOP; +METH-1165 PO; +MULT1TAB50 PO; +OXYC1TAB23 PO
== END 2024-04-18 ==
LOC: M PT 10:11
PROVIDERS: ATTEND Family Medicine
DX: S22.089D Unspecified fracture of T11-T12 vertebra, subsequent encounter for fracture with routine healing (principal)